=== PATIENT | female | born 1975 | race Caucasian/White ===

== ENCOUNTER 2022-08-04 12:00 | Outpatient (CLI) | payer OTHER, SELFPAY ==
[2022-08-04 12:24] LABS: Hematocrit 38.1 % (33.0-51.0); Hemoglobin* 12.6 gm/dL (12.0-16.0); Mean Corpuscular HGB Conc 33 gm/dL (32-36); Mean Corpuscular Hemoglobin 30 pg (26-34); Mean Corpuscular Volume 90 fL (80-100); Platelet Count* 270 K/uL (140-440); Red Blood Count 4.23 m/uL (4.00-5.20); White Blood Count* 8.18 K/uL (4.50-11.00)
[2022-08-04 12:30] LABS: Slide Review Reflex No
[2022-08-04 22:38] LABS: Vitamin D 25 Hydroxy* 33 ng/mL (30-80)
[2022-08-06 16:59] LABS: Follicle Stimulating Hormone 18.7 IU/L
[2022-08-10 04:47] LABS: Vitamin D, 1,25-Dihydroxy 28.3 pg/mL (19.9-79.3)
== END 2022-08-04 12:01 | disposition home or self-care (01) ==
PROVIDERS: PCP Internal Medicine; Visit Provider Physician Assistant
DX: R63.5 Abnormal weight gain (principal); R53.83 Other fatigue; R23.2 Flushing
CPT/HCPCS: 82306; 82652; 83001; 84443; 85027

== ENCOUNTER 2023-05-27 16:14 | Outpatient (CLI) | payer OTHER, SELFPAY | END 2023-05-27 16:15 | disposition home or self-care (01) | PROVIDERS: PCP Internal Medicine; Visit Provider Internal Medicine | DX: R53.83 Other fatigue (principal); E66.9 Obesity, unspecified; F32.A Depression, unspecified | CPT/HCPCS: 80053; 84443; 86039 ==

== ENCOUNTER 2023-06-04 14:51 | Outpatient (CLI) | payer OTHER, SELFPAY ==
--- NOTE | 2023-06-04 15:00 | CRLHL7_ITS ---
For Patients: As a result of the Century Cures Act, medical imaging exams and procedure reports are released immediately into your electronic medical record. You may view this report before your referring provider. If you have questions, please contact your health care provider. CLINICAL HISTORY: Lost IUD string TECHNIQUE: 2D burris scale and color Doppler images were acquired of the pelvis using a transvaginal approach. FINDINGS: On transvaginal imaging, there is a right posterior intramural heterogeneously hypoechoic circumscribed fibroid measuring 3.9 x 3.5 x 4.0 cm. The uterus measures 9.3 x 4.4 x 6.6 cm. The endometrium measures 4 millimeters. Intrauterine device is present within the endometrial canal. The left ovary measures 4.4 x 2.8 x 3.0 cm in size and the right ovary measures 3.4 x 1.7 x 1.6 cm. The ovaries demonstrate normal arterial and venous blood flow on color Doppler analysis. There are no suspicious fluid collections within the cul-de-sac. Simple left ovarian cyst measuring 2.8 x 2.7 x 3.1 cm. IMPRESSION: Intrauterine device is present within the endometrial canal in appropriate position. Right posterior intramural leiomyoma measuring 3.9 x 3.5 x 4.0 cm. Simple left ovarian cyst measuring 2.8 x 2.7 x 3.1 cm. Dictated by Galdino Zavala MD @ 06/04/2023 3:59:18 PM (Electronically Signed)
== END 2023-06-04 14:52 | disposition home or self-care (01) ==
LOC: US 14:51
PROVIDERS: PCP Internal Medicine; Visit Provider Physician Assistant
DX: T83.32XA Displacement of intrauterine contraceptive device, initial encounter (principal); D25.1 Intramural leiomyoma of uterus; N83.202 Unspecified ovarian cyst, left side
CPT/HCPCS: 76830

== ENCOUNTER 2024-08-02 11:45 | Outpatient (CLI) | payer OTHER, SELFPAY | END 2024-08-02 11:46 | disposition home or self-care (01) | PROVIDERS: PCP Internal Medicine; Visit Provider Internal Medicine | DX: R53.83 Other fatigue (principal); Z13.220 Encounter for screening for lipoid disorders; Z13.228 Encounter for screening for other metabolic disorders | CPT/HCPCS: 80053; 80061; 84443; 86039; 86200; 86431 ==

== ENCOUNTER 2025-07-11 14:46 | Outpatient (CLI) | payer OTHER, SELFPAY ==
--- NOTE | 2025-08-01 12:35 | W.PM.SLEEP ---
Sleep Study Details Details Interpreting Provider: Nasim Date of Sleep Study: 07/11/25 Sleep Study Details: STUDY TYPE:? Home unattended ? BMI:? 32.4 ORDERING PROVIDER:? Nasim INDICATION:? Concern for sleep apnea ? SLEEP SUMMARY:? 391 minutes monitored RESPIRATORY SUMMARY:? AHI 6.1 per rule 1A, 5.4 per CMS guideline Low oxygen 82 66.1% of study oxygen less than 90% Snoring 100% PERIODIC LIMB MOVEMENTS OF SLEEP:? Not recorded CARDIAC:? Range 51-92, mean 61.8 IMPRESSION:? Mild obstructive sleep apnea. Significant hypoxia noted during the study 66% of the study oxygen less than 90% and 18.2% of the study oxygen less than 85%. RECOMMENDATION: For the sleep apnea treatment options include CPAP dental appliance and/or airway expansion surgery. Further evaluation of cardiopulmonary system may be indicated for the hypoxia.
== END 2025-07-11 14:47 | disposition home or self-care (01) ==
LOC: SLEEP 14:48
PROVIDERS: PCP Internal Medicine; Visit Provider Otolaryngology
DX: G47.33 Obstructive sleep apnea (adult) (pediatric) (principal)
CPT/HCPCS: 95806